=== PATIENT | female | born 1950 | race Two or more races ===

== ENCOUNTER 2020-08-20 06:17 | Day surgery (SDC) | payer OTHER ==
[~2020-08-20 06:17] MED LIST: ALDACTONE50 MG PO; IRBESARTAN150 MG PO; JARDIANCE25 MG PO; LASIX20 MG PO; LIPITOR40 MG PO; METFORMIN HCL1000 M2 PO; PROPRANOLOL HCL10 MG PO
== END 2020-08-20 19:45 | disposition home or self-care (01) ==
LOC: CIR.AMB 06:17 → ADM 09:00 → CIR.AMB 19:45
PROVIDERS: ATTEND Surgery
DX: C50.412 Malignant neoplasm of upper-outer quadrant of left female breast (principal); Z20.822 Contact with and (suspected) exposure to COVID-19